=== PATIENT | male | born 1950 | race Hispanic/Latino ===

== ENCOUNTER 2023-12-31 15:49 | Emergency (ER) | payer MEDICAID, OTHER ==
[~2023-12-31] VITALS: Ht 182.9 cm; Wt 99.8 kg
--- NOTE | 2023-12-31 15:56 | ERN ---
ED Note History of Present Illness Stated Complaint: SWELLING Chief Complaint: LOWER EXTREMITY EDEMA Time Seen by MD: 15:51 Dictation: PATIENT IS A 73-YEAR-OLD MALE HERE WITH A SISTER WITH COMPLAINTS OF GENERALIZED BODY WEAKNESS MILD SHORT OF BREATH ON EXERTION FOR THE LAST SEVERAL DAYS. HE DENIES FEVER CHILLS NAUSEA VOMITING NO CHANGE IN URINATION. STATES HE IS NOT SURE WHAT HIS BLOOD SUGAR HAS BEEN IN THE LAST SEVERAL DAYS BECAUSE HE HAS HIS CAREGIVER CHECK IT AND HE DOES NOT KNOW WHAT IT IS. CURRENTLY HE STATES ON ONLY HE HAS NO OTHER COMPLAINTS OF VOICE HIS SISTER BROUGHT HIM IN JUST TO MAKE SURE THAT HE WAS OKAY. Past Medical History Past Medical History: Diabetes-Type II, High Cholesterol, Heart Disease, Hypertension Surgical History: Unknown RN Note Reviewed/Agreed w/PFSH: Yes Review of System Dictation CONSTITUTIONAL: NEGATIVE EXCEPT FOR HPI GB W HEAD/FACE: NEGATIVE EXCEPT FOR HPI EENT: NEGATIVE EXCEPT FOR HPI RESPIRATORY: NEGATIVE EXCEPT FOR HPI EXERTIONAL SOB GASTROINTESTINAL/ABDOMINAL: NEGATIVE EXCEPT FOR HPI GENITOURINARY: NEGATIVE EXCEPT FOR HPI MUSCULOSKELETAL: NEGATIVE EXCEPT FOR HPI INTEGUMENTARY: NEGATIVE EXCEPT FOR HPI NEUROLOGICAL/PSYCH: NEGATIVE EXCEPT FOR HPI HEMATOLOGIC/LYMPHATIC: NEGATIVE EXCEPT FOR HPI ALL SYSTEMS NEGATIVE, EXCEPT NOTED ABOVE. 13 POINT REVIEW OF SYSTEMS ASSESSED AND ALL NEGATIVE EXCEPT FOR ABOVE. Initial Vital Sign VS Vital Signs Date Time Temp Pulse Resp B/P (MAP) Pulse Ox O2 Delivery O2 Flow Rate FiO2 12/31/23 15:51 97.9 69 20 126/74 97 Room Air 0 12/31/23 16:06 21 Physical Exam Dictation VITAL SIGNS REVIEWED VOICES NO COMPLAINTS GENERAL APPEARANCE: ALERT, ORIENTED X 3, NO ACUTE DISTRESS, WELL DEVELOPED, NOURISHED. HEAD AND FACE: NON-TRAUMATIC. EYES: PERRL, PINK CONJUNCTIVAS, EYELID NO TRAUMA, ANTERIOR CHAMBER WITH ARCUS SENILIS. EARS: PINNAS INTACT AND NO SIGNS OF TRAUMA OR ERYTHEMA EAR CANALS CLEAR AND NO DISCHARGE TM NO ERYTHEMA NOSE: NO DISCHARGE, NO BLEEDING. OROPHARYNX: MOUTH NORMAL, TONGUE PINK, PHARYNX CLEAR,NO ERYTHEMA, TONSILS NO EXUDATES, NO ABSCESSES NOTED, MUCOUS MEMBRANE MOIST NECK: SUPPLE, NON-TENDER, NO THYROMEGALY, NO MASSES, NO JVD, NO BRUITS BREAST:DEFERRED CHEST:NO TENDERNESS, NO CREPITUS, NO PARADOXICAL MOVEMENT, NO RETRACTIONS LUNGS:CLEAR, WELL-VENTILATED, SYMMETRIC, NO RALES, NO WHEEZING, NO RHONCHI, NO STRIDOR, GOOD BREATH SOUNDS BILATERALLY HEART: REGULAR RATE, REGULAR RHYTHM, NO MURMUR, NO GALLOPS VASCULAR: TRACE PERIPHERAL EDEMA, ABDOMEN: SOFT, POSITIVE BOWEL SOUNDS, NONDISTENDED, NO GUARDING, NONTENDER, NO REBOUND, NO MASSES NO HEPATOMEGALY, NO SPLENOMEGALY, NO VENEGAS'S SIGN, NO HERNIAS. RECTAL: DEFERRED GENITAL: DEFERRED NEUROLOGICAL: NORMAL SPEECH, MOTOR FUNCTION INTACT, SENSORY FUNCTION INTACT MUSCULOSKELETAL: NECK NONTENDER, FULL RANGE OF MOTION, BACK NONTENDER, FULL RANGE OF MOTION, EXTREMITIES: NONTENDER, FULL RANGE OF MOTION SKIN: COLOR PINK, DRY, NO TURGOR, NO RASH, NO LACERATIONS, NO ABRASIONS, NO CONTUSIONS. LYMPHATIC: DEFERRED Results (Laboratory/Radiology) Laboratory/Radiology Laboratory Tests Test 12/31/23 16:21 White Blood Count 7.8 K/uL (4.8-10.8) Red Blood Count 3.19 MIL/uL (4.50-6.20) L Hemoglobin 9.8 g/dL (14.0-18.0) L Hematocrit 30.7 % (42-54) L Mean Corpuscular Volume 96.2 fL (79-99) Mean Corpuscular Hemoglobin 30.7 pg (27.0-33.0) Mean Corpuscular Hemoglobin Concent 31.9 g/dL (32.0-36.0) L Red Cell Distribution Width 14.9 % (11.0-15.5) Platelet Count 280 K/uL (130-400) Mean Platelet Volume 9.5 fL (7.5-10.5) Immature Granulocyte % (Auto) 0.3 % (0-1) Neutrophils (%) (Auto) 72.4 % (40.0-77.0) Lymphocytes (%) (Auto) 16.3 % (21.0-51.0) L Monocytes (%) (Auto) 5.8 % (3.0-13.0) Eosinophils (%) (Auto) 4.2 % (0.0-8.0) Basophils (%) (Auto) 1.0 % (0.0-5.0) Neutrophils # (Auto) 5.7 K/uL (1.8-7.7) Lymphocytes # (Auto) 1.3 K/uL (1.0-4.8) Monocytes # (Auto) 0.5 K/uL (0.1-1.0) Eosinophils # (Auto) 0.33 K/uL (0.00-0.70) Basophils # (Auto) 0.08 K/uL (0.00-0.20) Absolute Immature Granulocyte (auto 0.02 K/uL (0-1) Nucleated Red Blood Cells 0.0 % (0.0-0.19) Sodium Level 139 mmol/L (136-145) Potassium Level 4.2 mmol/L (3.5-5.1) Chloride Level 103 mmol/L (101-111) Carbon Dioxide Level 29 mmol/L (21-32) Blood Urea Nitrogen 43 mg/dL (7-18) H Creatinine 3.1 mg/dL (0.5-1.3) H Glomerular Filtration Rate Calc 20 mL/min (>90) Random Glucose 128 mg/dL (70-105) H Total Calcium 8.5 mg/dL (8.5-10.1) Magnesium Level 1.90 mg/dL (1.80-2.40) Troponin I High Sensitivity 54 ng/L (4-75) INDICATION: EXERTIONAL SOB TECHNIQUE: CHEST 1VW COMPARISON: 10/21/2008 FINDINGS/IMPRESSION: Bilateral airspace consolidation suggesting vascular congestion/edema versus pneumonia. Mild cardiomegaly Mild degenerative changes of the spine. The visualized upper abdomen appears unremarkable. Labs Reviewed?: Yes EKG Comment: EKG SINUS RHYTHM/HEART RATE 69/INCOMPLETE LEFT BUNDLE BRANCH BLOCK/NO ECTOPY ED Course ED Course Orders Procedure Category Date Status Time Cbc With Differential LAB 12/31/23 Complete 15:53 Troponin I High LAB 12/31/23 Complete Sensitivity 15:53 Urinalysis Profile LAB 12/31/23 Logged 15:53 12 Lead Ekg Tracing- EKG 12/31/23 Resulted Technical 15:53 Basic Metabolic Panel LAB 12/31/23 Complete 15:53 Magnesium LAB 12/31/23 Complete 15:53 Chest 1vw RAD 12/31/23 Resulted 15:56 Vital Signs Date Time Temp Pulse Resp B/P (MAP) Pulse Ox O2 Delivery O2 Flow Rate FiO2 12/31/23 16:06 98.2 71 16 111/79 100 Room Air* 0 21 12/31/23 15:51 97.9 69 20 126/74 97 Room Air 0 HEART Score Response (Comments) Value EKG: Repolarization changes 1 Age: > 65yrs (+2) 2 Risk Factors: 1-2 risk factors (+1) 1 Initial Troponin: Normal limit (0) 0 Total 4 Medical Decision Making MDM MDM: DIFFERENTIAL DIAGNOSIS: ACS/AMI/PNEUMONIA/BRONCHITIS/ELECTROLYTE IMBALANCE/DEHYDRATION RATIONALE: TESTS CONSIDERED AND ORDERED SECONDARY TO SHARED DECISION MAKING INCLUDE: EKG/LABS/RADIOLOGY PREVIOUS OUTSIDE RECORDS REVIEWED: OLD ER VISITS. NONE RISK OF COMPLICATION AND/OR MORBIDITY OR MORTALITY OF PATIENT MANAGEMENT: NONE MEDICATIONS-PER MEDICATION RECONCILIATION NONE NEED FOR HOSPITALIZATION: PATIENT DOES NOT MEET CRITERIA FOR HOSPITALIZATION. NEED FOR EMERGENCY MAJOR/MINOR SURGERY: NO THERE ARE NO SOCIAL CONCERNS WITH THIS PATIENT. PRESCRIPTION DRUG MANAGEMENT NONE PRESCRIPTIONS WILL INCLUDE SYMPTOMATIC CARE PATIENT'S PRIOR EXTERNAL MEDICAL RECORDS FROM OTHER ER VISITS WERE REVIEWED BY ME INDICATED. PRIOR TESTING AND RESULTS FROM PREVIOUS VISITS WERE REVIEWED. PRIOR TESTS WERE TAKEN INTO ACCOUNT WITH MEDICAL DECISION MAKING AND RESOURCE UTILIZATION, INDEPENDENT HISTORIAN/HISTORIANS WERE USED TO OBTAIN COMPLETE [facility] HISTORY. I INDEPENDENTLY INTERPRETED THE TEST THAT WERE PERFORMED, RESULTS WERE REVIEWED BY ME AND CONSIDERED FINDINGS ON RADIOLOGY IF ORDERED. MEDICAL MANAGEMENT AND EXAMINATION INTERPRETATION DISCUSSIONS WERE HAD BY ME WITH OTHER QUALIFIED HEALTHCARE PROFESSIONALS INDICATED FOR THE PATIENT'S CARE. DX & DISP Disposition: Discharge Departure Impression: Primary Impression: Stage 4 chronic kidney disease Additional Impressions: Anemia of chronic renal failure, stage 4 (severe), Edema Condition: Stable Additional Instructions: FOLLOW-UP WITH PRIMARY CARE PROVIDER IN 1 TO 2 DAYS. TAKE MEDICATIONS DIRECTED HERE IN THE EMERGENCY ROOM. OKAY TO CONTINUE HOME MEDICATIONS UNLESS OTHERWISE DISCUSSED DURING YOUR VISIT IN THE EMERGENCY ROOM TODAY. RETURN TO YOUR NEAREST EMERGENCY ROOM IF SYMPTOMS WORSEN OR IF THERE IS NO IMPROVEMENT. CALL 911 IF YOU NEED IMMEDIATE ASSISTANCE. TAKE TYLENOL OR MOTRIN [id number] NEEDED AND IF NO CONTRAINDICATIONS ARE PRESENT. INCREASE ORAL HYDRATION. A WOUND CULTURE OR URINE CULTURE WAS ORDERED HERE IN THE EMERGENCY ROOM DEPARTMENT PLEASE FOLLOW-UP WITH PRIMARY CARE PROVIDER AND ADVISE THEM TO GET REPEAT PORTS FROM OUR FACILITY. IF YOU HAD ANY TERA WRAP/SPLINTS THAT WERE APPLIED HERE, PLEASE DO NOT REMOVE THEM UNTIL YOU SEE YOUR PRIMARY CARE OR SPECIALTY. FOLLOW UP WITH DR. SANDHU IN THE NEXT 1-2 DAYS, CALL FOR AN APPOINTMENT. OR SEE YOUR PRIMARY CARE DOCTOR ON [place] FOR FOLLOW UP FOR YOUR KIDNEY FAILURE Referrals: SELF,REFERRAL (PCP) SAMANTHA TREVINO MD Time of Disposition: 18:18 I have reviewed the case, and I agree with, Diagnosis and Plan INÉS CARLSON NP Dec 31, 2023 15:56
--- NOTE | 2023-12-31 16:14 | EKG ---
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
[2023-12-31 16:32] LABS: BASOPHILS # (AUTO) 0.08 K/uL (0.00-0.20); EOSINOPHILS # (AUTO) 0.33 K/uL (0.00-0.70); EOSINOPHILS % (AUTO) 4.2 % (0.0-8.0); HEMATOCRIT 30.7 % (42-54); IMMATURE GRANULOCYTE ABSOLUTE 0.02 K/uL (0-1); LYMPHOCYTES # (AUTO) 1.3 K/uL (1.0-4.8); LYMPHOCYTES % (AUTO) 16.3 % (21.0-51.0); MEAN CORPUSCULAR HEMOGLOBIN 30.7 pg (27.0-33.0); MEAN CORPUSCULAR HGB CONC 31.9 g/dL (32.0-36.0); MEAN CORPUSCULAR VOLUME 96.2 fL (79-99); MONOCYTES # (AUTO) 0.5 K/uL (0.1-1.0); MONOCYTES % (AUTO) 5.8 % (3.0-13.0); NEUTROPHILS # (AUTO) 5.7 K/uL (1.8-7.7); NEUTROPHILS % (AUTO) 72.4 % (40.0-77.0); PLATELET COUNT (AUTO) 280 K/uL (130-400); RED BLOOD CELL COUNT(AUTO) 3.19 MIL/uL (4.50-6.20); RED CELL DISTRIBUTION WIDTH 14.9 % (11.0-15.5); WHITE BLOOD COUNT (AUTO) 7.8 K/uL (4.8-10.8)
[2023-12-31 16:43] LABS: CREATININE 3.1 mg/dL (0.5-1.3); POTASSIUM 4.2 mmol/L (3.5-5.1)
[2023-12-31 16:52] LABS: MAGNESIUM 1.9 mg/dL (1.80-2.40)
--- NOTE | 2023-12-31 17:28 | HMCIMG ---
INDICATION: EXERTIONAL SOB TECHNIQUE: CHEST 1VW COMPARISON: 10/21/2008 FINDINGS/IMPRESSION: Bilateral airspace consolidation suggesting vascular congestion/edema versus pneumonia. Mild cardiomegaly Mild degenerative changes of the spine. The visualized upper abdomen appears unremarkable.
[2023-12-31 19:36] VITALS: BP 120/88; PULSE 88; RESP 16; TEMP 98.3; O2SAT 98
== END 2023-12-31 19:52 | disposition home or self-care (01) ==
LOC: EDH 15:49
DX: I13.10 Hypertensive heart and chronic kidney disease without heart failure, with stage 1 through stage 4 chronic kidney disease, or unspecified chronic kidney disease (principal); E11.22 Type 2 diabetes mellitus with diabetic chronic kidney disease; N18.4 Chronic kidney disease, stage 4 (severe); D63.1 Anemia in chronic kidney disease; R60.0 Localized edema; E78.00 Pure hypercholesterolemia, unspecified
CPT/HCPCS: 36415; 71045; 80048; 83735; 84484; 85025; 93005

== ENCOUNTER 2024-02-09 12:28 | Emergency (ER) | payer OTHER ==
[~2024-02-09] VITALS: Ht 162.6 cm; Wt 83.0 kg
--- NOTE | 2024-02-09 12:38 | ERN ---
General Chief Complaint: LOWER EXTREMITY EDEMA Stated Complaint: LOWER EXTREMITY EDEMA` Time Seen by MD: 12:30 History of Present Illness Initial Comments 73-year-old male brought in by EMS from home for leg swelling. Patient is a shave CVA, CKD, diabetes. The patient reports that he is not want to be here, but his brother and provider told him he needs score of the hospital get checked out. He denies any complaints currently. No chest pain no shortness of breath. Stable vital signs per EMS. Allergies: Coded Allergies: No Known Drug Allergies (Unverified Allergy, Unknown, 02/09/24) Past Medical History Past Medical History: No Pertinent History Past Surgical History: Appendectomy ROS Dictation CONSTITUTIONAL: No chills, no fever, no weakness, no diaphoresis, no malaise. HEAD/FACE: No signs of trauma. EENT: No eye pain, no blurred vision, no tearing, no double vision, no ear pain, no ear discharge, no nose pain, no nasal congestion, no throat pain, no throat swelling, no mouth pain. RESPIRATORY: No cough, no orthopnea, no SOB, no stridor, no wheezing. CARDIOVASCULAR: No chest pain, no edema, no palpitations, no syncope. GASTROINTESTINAL/ABDOMINAL: No abdominal pain, no constipation, no diarrhea, no nausea, no vomiting. GENITOURINARY: No abnormal discharge, no dysuria, no frequent urination, no hematuria. No complaints of pain in the genitals. MUSCULOSKELETAL: No back pain, no gout, no joint pain, no joint swelling, no muscle pain, no muscle stiffness, no neck pain. INTEGUMENTARY: No change in color, no change in hair/nails, no dryness, no lesion, no lumps, no rash. NEUROLOGICAL/PSYCH: No anxiety, not depressed, no emotional problem, no headache, no numbness, no pre-existing deficit, no history of seizures, no tremors, no weakness. HEMATOLOGIC/LYMPHATIC: Not anemic, no history of blood clots, no apparent bleeding, no bruising, glands not swollen. All Systems Negative, Except as Noted. Physical Exam Physical Exam Dictation VITAL SIGNS: Reviewed. GENERAL APPEARANCE: Alert, oriented x3, no acute distress, HEAD AND FACE: Non-traumatic. EYES: PERRL, pink conjunctivas, eyelid no trauma, anterior chamber clear. EARS: Pinnas intact and no signs of trauma or erythema. Ear canals clear and no discharge. TMs no erythema. NOSE: No discharge, no bleeding. OROPHARYNX: Mouth normal, teeth no caries, tongue pink. Pharynx clear, no erythema. Tonsils no exudates, no abscesses noted. Mucous membrane moist. NECK: Supple, non-tender, no thyromegaly, no masses, no JVD, no bruits. BREAST: Deferred. CHEST: No tenderness, no crepitus, no paradoxical movement, no retractions. LUNGS: Clear, well-ventilated, symmetric, no rales, no wheezing, no rhonchi, no stridor, good breath sounds bilaterally. HEART: Regular rate, regular rhythm, no murmur, no gallops. VASCULAR: No peripheral edema. ABDOMEN: Soft, positive bowel sounds, nondistended, no guarding, nontender, no rebound, no masses no hepatomegaly, no splenomegaly, no Nuñez's sign, no hernias. RECTAL: Deferred. GENITAL: Deferred. NEUROLOGICAL: Normal speech, gross motor function intact, gross sensory function intact. MUSCULOSKELETAL: Neck nontender, full range of motion, back nontender, contractions of the right side EXTREMITIES: Nontender, full range of motion. SKIN: Color pink, dry, no turgor, no rash, no lacerations, no abrasions, no contusions. LYMPHATICS: Deferred. Results Laboratory and Microbiology Lab and Micro Result Laboratory Tests Test 02/09/24 12:49 White Blood Count 6.1 K/uL (4.8-10.8) Red Blood Count 3.68 MIL/uL (4.50-6.20) L Hemoglobin 11.3 g/dL (14.0-18.0) L Hematocrit 35.8 % (42-54) L Mean Corpuscular Volume 97.3 fL (79-99) Mean Corpuscular Hemoglobin 30.7 pg (27.0-33.0) Mean Corpuscular Hemoglobin Concent 31.6 g/dL (32.0-36.0) L Red Cell Distribution Width 14.8 % (11.0-15.5) Platelet Count 236 K/uL (130-400) Mean Platelet Volume 9.4 fL (7.5-10.5) Immature Granulocyte % (Auto) 0.2 % (0-1) Neutrophils (%) (Auto) 67.2 % (40.0-77.0) Lymphocytes (%) (Auto) 22.6 % (21.0-51.0) Monocytes (%) (Auto) 5.4 % (3.0-13.0) Eosinophils (%) (Auto) 3.6 % (0.0-8.0) Basophils (%) (Auto) 1.0 % (0.0-5.0) Neutrophils # (Auto) 4.1 K/uL (1.8-7.7) Lymphocytes # (Auto) 1.4 K/uL (1.0-4.8) Monocytes # (Auto) 0.3 K/uL (0.1-1.0) Eosinophils # (Auto) 0.22 K/uL (0.00-0.70) Basophils # (Auto) 0.06 K/uL (0.00-0.20) Absolute Immature Granulocyte (auto 0.01 K/uL (0-1) Nucleated Red Blood Cells 0.0 % (0.0-0.19) Sodium Level 138 mmol/L (136-145) Potassium Level 4.0 mmol/L (3.5-5.1) Chloride Level 103 mmol/L (101-111) Carbon Dioxide Level 29 mmol/L (21-32) Blood Urea Nitrogen 40 mg/dL (7-18) H Creatinine 2.3 mg/dL (0.5-1.3) H Glomerular Filtration Rate Calc 29 mL/min (>90) Random Glucose 97 mg/dL (70-105) Total Calcium 9.0 mg/dL (8.5-10.1) Troponin I High Sensitivity 41 ng/L (4-75) B-Type Natriuretic Peptide 1980 pg/mL (0-100) H MDM CC: Pedal edema Historian: Patient Comorbidities: CKD, advanced stage, history of stroke, hypertension Limitations by social determinants: None Differential diagnosis: Worsening CKD, fluid overload, CHF, protein deficiency, other. Vital signs: Stable here in the ER. EKG: Atrial fibrillation rate of 56 left axis deviation go up progression. No STEMI. Independently interpreted by me. Labs: No leukocytosis. Mild normocytic anemia hemoglobin of 11.3. Chemistry panel creatinine 2.3 BUN of 40 with a GFR in 29 otherwise electrolytes are stable. Troponin is normal. The BNP is elevated 1979. Performed an external chart review, his creatinine was 3.1 couple of months ago on evaluation, there isn't appear to be any NAREN or worsening rib upon tinnitus time. CXR (independently interpreted by me): Vascular congestion/ pulmonary infiltrates bilaterally. Clinically patient was fluid overloaded. He has not elevated BNP, chest x-ray with some vascular congestion, in pedal edema on clinical exam. I recommended that the patient stay in the hospital for diuresis, but the patient reports he does not want to stay in the hospital at all. He reports he did not to come in the 1st place but it is family made him. He reports that he takes the diuretic at home. I will recommend that he double his dose for the next 3-5 days and follow up his primary doctor. We will recommend he return to the emergency department as needed. REASON: cp ORDERING PHYSICIAN: EMMANUEL HANSEN DO PROCEDURE: CXR1VW - CHEST 1VW CHEST 1VW HISTORY: Chest pain COMPARISON: 12/31/2023 FINDINGS: A frontal projection of the chest was obtained. Bilateral pulmonary infiltrates are seen. The heart is normal in size. Aortic calcifications are seen. IMPRESSION: 1. Bilateral pulmonary infiltrates are seen. ED Course Orders Procedure Category Date Status Time Cbc With Differential LAB 02/09/24 Complete 12:36 Chest 1vw RAD 02/09/24 Resulted 12:36 12 Lead Ekg Tracing- EKG 02/09/24 Complete Technical 12:36 Troponin I High LAB 02/09/24 Complete Sensitivity 12:36 Basic Metabolic Panel LAB 02/09/24 Complete 12:36 B-Type Natriuretic LAB 02/09/24 Complete Peptide 12:38 Vital Signs Date Time Temp Pulse Resp B/P (MAP) Pulse Ox O2 Delivery O2 Flow Rate FiO2 02/09/24 13:13 97.0 84 18 106/87 97 Room Air* 0 21 02/09/24 12:30 98.4 64 16 123/83 100 Room Air* 0 21 02/09/24 12:30 98.4 64 16 123/83 100 Room Air 0 DX & DISP Disposition: Discharge Departure Impression: Primary Impression: Pedal edema Additional Impressions: Fluid overload, CKD (chronic kidney disease) Condition: Stable Additional Instructions: Your workup is significant for mild fluid overload. Your chest x-ray shows mild fluid overload. The swelling in your feet also indicate fluid overload. Your EKGs that baseline for you. The rest of your lab work has a baseline for you. I recommend you double your dose of diuretic for the next 3-5 days. Please follow up with your primary doctor next week. Return to the emergency department as needed. Referrals: SELF,REFERRAL (PCP) EMMANUEL HANSEN DO Feb 09, 2024 12:38
[2024-02-09 13:09] LABS: BASOPHILS # (AUTO) 0.06 K/uL (0.00-0.20); EOSINOPHILS # (AUTO) 0.22 K/uL (0.00-0.70); EOSINOPHILS % (AUTO) 3.6 % (0.0-8.0); HEMATOCRIT 35.8 % (42-54); IMMATURE GRANULOCYTE ABSOLUTE 0.01 K/uL (0-1); LYMPHOCYTES # (AUTO) 1.4 K/uL (1.0-4.8); LYMPHOCYTES % (AUTO) 22.6 % (21.0-51.0); MEAN CORPUSCULAR HEMOGLOBIN 30.7 pg (27.0-33.0); MEAN CORPUSCULAR HGB CONC 31.6 g/dL (32.0-36.0); MEAN CORPUSCULAR VOLUME 97.3 fL (79-99); MONOCYTES # (AUTO) 0.3 K/uL (0.1-1.0); MONOCYTES % (AUTO) 5.4 % (3.0-13.0); NEUTROPHILS # (AUTO) 4.1 K/uL (1.8-7.7); NEUTROPHILS % (AUTO) 67.2 % (40.0-77.0); PLATELET COUNT (AUTO) 236 K/uL (130-400); RED BLOOD CELL COUNT(AUTO) 3.68 MIL/uL (4.50-6.20); RED CELL DISTRIBUTION WIDTH 14.8 % (11.0-15.5); WHITE BLOOD COUNT (AUTO) 6.1 K/uL (4.8-10.8)
[2024-02-09 13:19] LABS: CREATININE 2.3 mg/dL (0.5-1.3)
--- NOTE | 2024-02-09 13:32 | EKG ---
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
--- NOTE | 2024-02-09 13:36 | HMCIMG ---
CHEST 1VW HISTORY: Chest pain COMPARISON: 12/31/2023 FINDINGS: A frontal projection of the chest was obtained. Bilateral pulmonary infiltrates are seen. The heart is normal in size. Aortic calcifications are seen. IMPRESSION: 1. Bilateral pulmonary infiltrates are seen.
--- NOTE | 2024-02-09 16:04 | NUR ---
CALLED [facility] TO SET UP TRANSPORT FOR PT.
--- NOTE | 2024-02-09 17:23 | NUR ---
SPOKE WITH FAMILY NAPOLEON DODSON REGARDING PATIENT INSTRUCTIONS FOR DISCHARGE.
[2024-02-09 19:33] VITALS: BP 119/63; PULSE 74; RESP 18; TEMP 98.4; O2SAT 97
== END 2024-02-09 19:35 | disposition home or self-care (01) ==
LOC: EDH 12:28
DX: R60.0 Localized edema (principal); E87.70 Fluid overload, unspecified; I12.9 Hypertensive chronic kidney disease with stage 1 through stage 4 chronic kidney disease, or unspecified chronic kidney disease; E11.22 Type 2 diabetes mellitus with diabetic chronic kidney disease; N18.9 Chronic kidney disease, unspecified; Z86.73 Personal history of transient ischemic attack (TIA), and cerebral infarction without residual deficits; Z90.49 Acquired absence of other specified parts of digestive tract
CPT/HCPCS: 36415; 71045; 80048; 83880; 84484; 85025; 93005; 99285

== ENCOUNTER 2024-03-15 18:09 | Emergency (ER) | payer OTHER ==
[~2024-03-15] VITALS: Ht 177.8 cm; Wt 5.3 kg
--- NOTE | 2024-03-15 18:34 | ERN ---
ED Note History of Present Illness Stated Complaint: FEET INJURY Time Seen by MD: 18:11 Time Seen by Midlevel: 18:11 Dictation: Patient is a 74-year-old male with a history of CKD who presents to the emergency department with complaints of lower leg swelling onset this morning. Patient reports he does not think his feet were swollen but family was concerned so they sent him over. Reports he is being treated for lower leg cellulitis. Patient denies any shortness of breath, chest pain, leg pain,, fevers. Denies any complaints Allergies: Coded Allergies: No Known Drug Allergies (Unverified Allergy, Unknown, 02/09/24) Past Medical History Past Medical History: No Pertinent History Surgical History: Appendectomy RN Note Reviewed/Agreed w/PFSH: Yes Review of System Dictation Constitutional: Negative for fever,chills, and weight loss Eyes: Negative for injury, pain,redness, and discharge ENT: Negative for injury,pain or swelling Cardiovascular: Negative for chest pain, palpitations. Positive for feet edema Respiratory: Negative for shortness of breath, cough, and wheezing, Abdomen/GI: Negative for abdominal pain, nausea, vomiting, diarrhea, and constipation Back: Negative for injury and pain : Negative for injury, bleeding and discharge MS/Extremity: Negative for injury and deformity Skin: Negative for rash, and discoloration Neuro: Negative for headache, weakness, numbness, tingling, and seizure Psych: Negative for suicide ideation, homicidal ideation, and hallucinations Initial Vital Sign VS Vital Signs Date Time Temp Pulse Resp B/P (MAP) Pulse Ox O2 Delivery O2 Flow Rate FiO2 03/15/24 18:35 98.1 91 18 182/98 97 Physical Exam Dictation Vital Signs reviewed General Appearance: Alert, oriented x 3, no acute distress, well developed, nourished. Head and Face: non-traumatic. Eyes: PERRL, pink conjunctivas, eyelid no trauma, anterior chamber with arcus senilis. Ears: Pinnas intact and no signs of trauma or erythema ear canals clear and no discharge TM no erythema Nose: No discharge, no bleeding. Oropharynx: Mouth normal, tongue pink. pharynx clear,no erythema, tonsils no exudates, no abscesses noted, mucous membrane moist Neck: Supple, non-tender, no thyromegaly, no masses, no JVD, no bruits Breast:Deferred Chest:No tenderness, no crepitus, no paradoxical movement, no retractions Lungs:Clear, well-ventilated, symmetric, no rales, no wheezing, no rhonchi, no stridor, good breath sounds bilaterally Heart: Regular rate, regular rhythm, no murmur, no gallops Vascular: +1 bilateral peripheral edema Abdomen: Soft, positive bowel sounds, nondistended, no guarding, nontender, no rebound, no masses no hepatomegaly, no splenomegaly, no Nuñez's sign, no hernias. Rectal: Deferred Genital: Deferred Neurological: Normal speech, motor function intact, sensory function intact Musculoskeletal: Neck nontender, full range of motion, back nontender, full range of motion, Extremities: nontender, full range of motion Skin: Color pink, dry, no turgor, no rash, no lacerations, no abrasions, no contusions. Lymphatic: Deferred Results (Laboratory/Radiology) Laboratory/Radiology Laboratory Tests Test 03/15/24 18:53 White Blood Count 5.4 K/uL (4.8-10.8) Red Blood Count 4.11 MIL/uL (4.50-6.20) L Hemoglobin 12.4 g/dL (14.0-18.0) L Hematocrit 38.6 % (42-54) L Mean Corpuscular Volume 93.9 fL (79-99) Mean Corpuscular Hemoglobin 30.2 pg (27.0-33.0) Mean Corpuscular Hemoglobin Concent 32.1 g/dL (32.0-36.0) Red Cell Distribution Width 15.6 % (11.0-15.5) H Platelet Count 343 K/uL (130-400) Mean Platelet Volume 9.2 fL (7.5-10.5) Immature Granulocyte % (Auto) 0.4 % (0-1) Neutrophils (%) (Auto) 61.1 % (40.0-77.0) Lymphocytes (%) (Auto) 26.8 % (21.0-51.0) Monocytes (%) (Auto) 4.8 % (3.0-13.0) Eosinophils (%) (Auto) 5.6 % (0.0-8.0) Basophils (%) (Auto) 1.3 % (0.0-5.0) Neutrophils # (Auto) 3.3 K/uL (1.8-7.7) Lymphocytes # (Auto) 1.4 K/uL (1.0-4.8) Monocytes # (Auto) 0.3 K/uL (0.1-1.0) Eosinophils # (Auto) 0.30 K/uL (0.00-0.70) Basophils # (Auto) 0.07 K/uL (0.00-0.20) Absolute Immature Granulocyte (auto 0.02 K/uL (0-1) Nucleated Red Blood Cells 0.0 % (0.0-0.19) Sodium Level 135 mmol/L (136-145) L Potassium Level 4.5 mmol/L (3.5-5.1) Chloride Level 97 mmol/L (101-111) L Carbon Dioxide Level 36 mmol/L (21-32) H Blood Urea Nitrogen 68 mg/dL (7-18) H Creatinine 3.5 mg/dL (0.5-1.3) H Glomerular Filtration Rate Calc 17 mL/min (>90) Random Glucose 170 mg/dL (70-105) H Total Calcium 9.6 mg/dL (8.5-10.1) Troponin I High Sensitivity 54 ng/L (4-75) B-Type Natriuretic Peptide 334 pg/mL (0-100) H REASON: sob ORDERING PHYSICIAN: MISTY ELIZONDO PROCEDURE: CXR1VW - CHEST 1VW PORTABLE CHEST RADIOGRAPH INDICATION: sob COMPARISON: 02/09/2024 FINDINGS: Heart size is normal. The pulmonary vascularity and morena appear normal. No abnormal pulmonary parenchymal opacity or consolidation identified. No significant pleural effusion noted. No pneumothorax detected. IMPRESSION: No radiographic evidence for any acute cardiopulmonary process. Labs Reviewed?: Yes EKG: (+) rhythm (Sinus rhythm) EKG Comment: Date:03/15/2024 Time:1834 Ventricular rate:61 [place] interval:328 QRS duration:126 QT/QTc:487 EKG interpretation: Sinus rhythm Reviewed by ED Attending no STEMI ED Course ED Course Orders Procedure Category Date Status Time 12 Lead Ekg Tracing- EKG 03/15/24 Complete Technical 18:23 Cbc With Differential LAB 03/15/24 Complete 18:23 Chest 1vw RAD 03/15/24 Resulted 18:23 Troponin I High LAB 03/15/24 Complete Sensitivity 18:23 Basic Metabolic Panel LAB 03/15/24 Complete 18:23 B-Type Natriuretic LAB 03/15/24 Complete Peptide 18:23 Vital Signs Date Time Temp Pulse Resp B/P (MAP) Pulse Ox O2 Delivery O2 Flow Rate FiO2 03/15/24 18:35 98.1 91 18 182/98 97 Medical Decision Making [facility] Patient is a 74-year-old male with a history of CKD who presents to the emergency department with complaints of lower leg swelling onset this morning. Patient reports he does not think his feet were swollen but family was concerned so they sent him over. Reports he is being treated for lower leg cellulitis. Patient denies any shortness of breath, chest pain, leg pain,, fevers. Denies any complaints CBC showed no leukocytosis, mild normocytic anemia, chemistry showed mild hypochloremia, hyponatremia, worsening kidney function, GFR of 17 BNP 334 significantly improved from previous visit. Chest x-ray unremarkable. Patient continues in no acute distress. I suggested the patient we could admit him to the hospital for evaluation of kidney function but at this time patient does not want to stay in the hospital. He reports he did not want to come to the ER in the 1st placed. Patient has good follow up with PCP and agrees to follow up. Differential diagnosis: Lower extremity cellulitis, electrolyte imbalance, ACS, fluid overload Need for hospitalization: Patient does not meet criteria for hospitalization. There are no social concerns with this patient. DX & DISP Disposition: Discharge Departure Impression: Primary Impression: CKD (chronic kidney disease) Additional Impressions: Lower extremity cellulitis, Hyponatremia, Hypochloremia, Anemia Condition: Stable Additional Instructions: Please follow up with your primary doctor in 1-2 days. You will need your physician to continue to monitor your kidney function. Continue taking your treatment for a your lower extremity cellulitis. If symptoms worsen please return to ER. FOLLOW-UP WITH PRIMARY CARE PROVIDER IN 1 TO 2 DAYS. TAKE MEDICATIONS DIRECTED HERE IN THE EMERGENCY ROOM. OKAY TO CONTINUE HOME MEDICATIONS UNLESS OTHERWISE DISCUSSED DURING YOUR VISIT IN THE EMERGENCY ROOM TODAY. RETURN TO YOUR NEAREST EMERGENCY ROOM IF SYMPTOMS WORSEN OR IF THERE IS NO IMPROVEMENT. CALL 911 IF YOU NEED IMMEDIATE ASSISTANCE. TAKE TYLENOL [id number] NEEDED AND IF NO CONTRAINDICATIONS ARE PRESENT. INCREASE ORAL HYDRATION. A WOUND CULTURE OR URINE CULTURE WAS ORDERED HERE IN THE EMERGENCY ROOM DEPARTMENT PLEASE FOLLOW-UP WITH PRIMARY CARE PROVIDER AND ADVISE THEM TO GET REPEAT PORTS FROM OUR FACILITY. IF YOU HAD ANY TERA WRAP/SPLINTS THAT WERE APPLIED HERE, PLEASE DO NOT REMOVE THEM UNTIL YOU SEE YOUR PRIMARY CARE OR SPECIALTY. Referrals: SELF,REFERRAL (PCP) Time of Disposition: 19:56 I have reviewed the case, and I agree with, Diagnosis and Plan I performed a substantive portion of the visit. I have reviewed and personally made and approve the management plan that is documented in the notes by myself with AIXA/resident. I acknowledged full responsibility for the patient's management plan. MISTY ELIZONDO Mar 15, 2024 18:34 EMMANUEL HANSEN DO Mar 15, 2024 20:08
--- NOTE | 2024-03-15 18:37 | EKG ---
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
--- NOTE | 2024-03-15 19:03 | HMCIMG ---
PORTABLE CHEST RADIOGRAPH INDICATION: sob COMPARISON: 02/09/2024 FINDINGS: Heart size is normal. The pulmonary vascularity and morena appear normal. No abnormal pulmonary parenchymal opacity or consolidation identified. No significant pleural effusion noted. No pneumothorax detected. IMPRESSION: No radiographic evidence for any acute cardiopulmonary process.
[2024-03-15 19:14] LABS: BASOPHILS # (AUTO) 0.07 K/uL (0.00-0.20); BASOPHILS % (AUTO) 1.3 % (0.0-5.0); EOSINOPHILS % (AUTO) 5.6 % (0.0-8.0); HEMATOCRIT 38.6 % (42-54); IMMATURE GRANULOCYTE ABSOLUTE 0.02 K/uL (0-1); LYMPHOCYTES # (AUTO) 1.4 K/uL (1.0-4.8); LYMPHOCYTES % (AUTO) 26.8 % (21.0-51.0); MEAN CORPUSCULAR HEMOGLOBIN 30.2 pg (27.0-33.0); MEAN CORPUSCULAR HGB CONC 32.1 g/dL (32.0-36.0); MEAN CORPUSCULAR VOLUME 93.9 fL (79-99); MONOCYTES # (AUTO) 0.3 K/uL (0.1-1.0); MONOCYTES % (AUTO) 4.8 % (3.0-13.0); NEUTROPHILS # (AUTO) 3.3 K/uL (1.8-7.7); NEUTROPHILS % (AUTO) 61.1 % (40.0-77.0); PLATELET COUNT (AUTO) 343 K/uL (130-400); RED BLOOD CELL COUNT(AUTO) 4.11 MIL/uL (4.50-6.20); RED CELL DISTRIBUTION WIDTH 15.6 % (11.0-15.5); WHITE BLOOD COUNT (AUTO) 5.4 K/uL (4.8-10.8)
[2024-03-15 19:22] LABS: CREATININE 3.5 mg/dL (0.5-1.3); POTASSIUM 4.5 mmol/L (3.5-5.1)
[2024-03-15 19:41] LABS: B-TYPE NATRIURETIC PEPTIDE 334 pg/mL (0-100)
[2024-03-15 20:09] VITALS: BP 158/74; PULSE 88; RESP 18; TEMP 98.1; O2SAT 97
== END 2024-03-15 20:10 | disposition home or self-care (01) ==
LOC: EDH 18:09
DX: N18.9 Chronic kidney disease, unspecified (principal); L03.116 Cellulitis of left lower limb; L03.115 Cellulitis of right lower limb; E87.1 Hypo-osmolality and hyponatremia; E87.8 Other disorders of electrolyte and fluid balance, not elsewhere classified; D64.9 Anemia, unspecified; Z90.49 Acquired absence of other specified parts of digestive tract
CPT/HCPCS: 36415; 71045; 80048; 83880; 84484; 85025; 93005; 99285